=== PATIENT | female | born 1990 | race Caucasian/White ===

== ENCOUNTER 2017-09-01 19:03 | Emergency (ER) | payer MEDICAID, OTHER ==
--- NOTE | 2017-09-01 21:02 | ED.PDOC ---
History of Present Illness - General Chief Complaint: Fever Stated Complaint: fever,body aches,headache, dizziness Time Seen by Provider: 09/01/17 20:43 Source: patient Additional Information: 26 YEAR OLD HAS NOT FELT GOOD FOR A WEEK WITH FEVER HEADACHE BODYACHE COUGH DRY NON PRODUCTIVE ALONG WITH HER 2 CHILDREN WITH ALMOST SIMILAR SYMPTOMS - History of Present Illness Timing/Duration: 1 week Severity: moderate Improving Factors: nothing Worsening Factors: nothing Associated Symptoms: cough, malaise, weakness Allergies/Adverse Reactions: Allergies NO KNOWN ALLERGY Allergy (Verified 09/01/17 21:15) Home Medications: Ambulatory Orders Lisinopril 20 mg 09/01/17 Oseltamivir Capsule [Tamiflu] 75 mg PO DAILY 10 Days #10 capsule 09/01/17 Review of Systems - Review of Systems Constitutional: States: see HPI EENTM: States: no symptoms reported Respiratory: States: cough Cardiology: States: no symptoms reported Gastrointestinal/Abdominal: States: nausea Genitourinary: States: no symptoms reported Musculoskeletal: States: no symptoms reported, joint pain Skin: States: no symptoms reported Neurological: States: no symptoms reported Endocrine: States: no symptoms reported Hematologic/Lymphatic: States: no symptoms reported Family Medical History - Family History Mother Family History: Unknown Physical Exam - Physical Exam General Appearance: Alert, Comfortable Eye Exam: bilateral normal Ears, Nose, Throat: hearing grossly normal, normal ENT inspection Neck: non-tender, full range of motion, supple, normal inspection Respiratory: chest non-tender, lungs clear, normal breath sounds, no respiratory distress, no accessory muscle use Cardiovascular/Chest: normal peripheral pulses, regular rate, rhythm, no edema, no gallop, no JVD, no murmur Peripheral Pulses: radial,right: 2+, radial,left: 2+, femoral,right: 2+, femoral ,left: 2+, popliteal,right: 2+, popliteal,left: 2+ Gastrointestinal/Abdominal: normal bowel sounds, non tender, soft, no organomegaly, no pulsatile mass Extremity: normal range of motion, non-tender, normal inspection 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 Copy, Patient Portal Self Enrollment Activity: increase activity as tolerated Prescriptions: Oseltamivir Capsule [Tamiflu] 75 mg PO DAILY 10 Days #10 capsule Home Medications: Ambulatory Orders Lisinopril 20 mg 09/01/17 Oseltamivir Capsule [Tamiflu] 75 mg PO DAILY 10 Days #10 capsule 09/01/17
[2017-09-01 21:15] VITALS: TEMP 99.3
[2017-09-01 23:24] VITALS: BP 131/75; O2SAT 99
== END 2017-09-01 23:25 | disposition home or self-care (01) ==
LOC: ER 19:03
DX: J11.1 Influenza due to unidentified influenza virus with other respiratory manifestations (principal); R50.81 Fever presenting with conditions classified elsewhere